=== PATIENT | male | born 1935 | race Caucasian/White ===

== ENCOUNTER 2016-06-09 05:48 | Inpatient (IN) | payer MEDICARE, BC ==
[~2016-06-09] VITALS: Ht 180.3 cm; Wt 83.8 kg
[2016-06-14] MEDS ORDERED: ASPIR 8181 MG PO (10:04)
[2016-06-14] MEDS ORDERED: LIPITOR DPS20 MG PO (10:05)
[2016-06-14] MEDS ORDERED: THORAZINE-DPS25 MG PO (10:06)
[2016-06-14] MEDS ORDERED: TYLENOL DPS325 MG PO (10:06)
[2016-06-14] MEDS ORDERED: BACITRACIN15 G1 TP (10:06)
--- NOTE | 2016-06-14 16:23 | CO ---
ADMIT: 06/09/2016 RM/LOC: 512 [facility] MR#: [id number] [address] [address] [address] [place] [address] Consultation SEX: M AGE: 80 : 1935 DATE OF CONSULTATION: 06/09/2016 ATTENDING PHYSICIAN: Lanre Goode MD CONSULTING PHYSICIAN: Eric Lin MD REASON FOR CONSULTATION: Probable mesothelioma. HISTORY OF PRESENT ILLNESS: The patient is a very pleasant, 80-year-old male, who presented in April 2016 with some dyspnea. He underwent a chest x-ray that showed a large right-sided pleural effusion and was referred to Pulmonology with Dr. Satcy. On 05/11/2016, he underwent a thoracentesis that was then followed by a CT scan of the chest. This thoracentesis was negative for malignant cells on flow cytometry and morphology. The CT scan of the chest shows no distinct lung nodules or significant mediastinal adenopathy, but was without contrast. There was a questionable right lower lung consolidation. He was then referred to Dr. Jensen Stacy, who performed a bronchoscopy and a repeat thoracentesis on 05/23/2016 that also was negative for any malignant cells. He was then referred to Dr. Goode for consideration of thoracoscopy which was performed today, and unfortunately shows a pleural-based mass in the posterior lateral sulcus of the diaphragm. Several of these nodules were excised for pathology. The patient also had a talc pleurodesis performed. The frozen section on the biopsy of the pleural nodule appears to be a mesothelioma. 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 He had only a very brief smoking history. He otherwise has been very healthy. He has had really no physical limitations. 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 He is recovering quite well from his procedure. I am asked to see him to discuss the possible scenarios for his treatment. PAST MEDICAL HISTORY: Hyperlipidemia and sleep apnea. ALLERGIES: ARE REVIEWED IN HIS CHART. MEDICATIONS: Are reviewed in his chart. SOCIAL HISTORY: The patient has a remote smoking history, quitting over 45 years ago. He lives near [place] with his . They have four daughters. His son in law is my partner Dr. Patrick Tatum. FAMILY HISTORY: He is not aware of any recurrent hereditary malignancies in the family. REVIEW OF SYSTEMS: See HPI. Otherwise, complete review of systems was ADMIT: 06/09/2016 RM/LOC: 512 [facility] MR#: [id number] [address] [address] [address] [place] [address] Consultation SEX: M AGE: 80 : 1935 obtained and is negative. PHYSICAL EXAMINATION: VITAL SIGNS: Temp was 97.8, pulse 62, respirations 16, blood pressure 124/67. GENERAL: The patient is in no acute distress, and he provides me a good history. He was alert and oriented. He is somewhat hard of hearing. The rest of our exam was deferred. LABORATORY DATA: None to review during this admission. 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 I talked with him and the family at length today with our face- to-face visit lasting approximately 45 minutes regarding his surgical findings and are concerned that this might represent mesothelioma. We will still need a few days to sort out the final pathology, but if this is indeed mesothelioma, then we need to make a decision as to whether he might be a candidate for an aggressive resection approach with possible pleurectomy. I doubt that he would be a candidate for a pneumonectomy with the pleurectomy, but we may pursue expert opinion possibly with Dr. Johanny Foreman in [place]. I will follow along during his hospital course, but will plan to see him back in my clinic after we know his final pathology and then we can make further decisions. He will ultimately need some additional imaging studies with a contrast CT scan of the chest, and possibly a PET scan. We will make these decisions after we know his pathology. I appreciate this consultation. Eric Lin MD/ jose JOB #: [id number] CC: Lanre Goode MD, Attending Physician Jensen Stacy MD, Family Physician
--- NOTE | 2016-06-16 09:09 | OR ---
ADMIT: 06/09/2016 RM/LOC: 512 [facility] MR#: [id number] [facility]#: [id number] [address] [address] [address] [place] [address] Operative/Delivery Room Report SEX: M AGE: 80 : 1935 SURGERY DATE: 06/09/2016 SURGEON: Lanre Goode MD PREOPERATIVE DIAGNOSIS: Persistent recurrent right-sided pleural effusion. POSTOPERATIVE DIAGNOSIS: Right-sided pleural effusion with evidence of small tumor in the posterolateral diaphragmatic sulcus. PROCEDURE PERFORMED: 1. Thoracoscopy with biopsy of this pleural mass in the posterolateral sulcus of the diaphragm as well as multiple random biopsies of the pleural surface. 2. Talc pleurodesis. RADIATION PHYSICIST: LACIE Villagran ANESTHESIA: General endotracheal. ESTIMATED BLOOD LOSS: Less than 10 mL. DESCRIPTION OF PROCEDURE: After appropriate informed consent was obtained, the patient was brought to the operating room. General endotracheal anesthesia was induced with double-lumen endotracheal tube. The patient was then positioned with his right side up. All of his extremities were appropriately padded, it was held in place with a beanbag. An axillary roll was placed underneath his left axilla. His right chest was prepped and draped in a sterile fashion. Anterior axillary line incision was made approximately 7th intercostal space. Thoracoport was placed and the camera was introduced. Immediately encountered some brownish-colored fluid throughout the chest and the pleural space. I suctioned this out and collected about 900 mL of pleural fluid. This was sent for cytology. I then added an additional 5 mm port anteriorly and another 12 mm Thoracoport posteriorly. Through these three ports, I was able to inspect the chest. There was just a generalized injected appearance to the pleural lining but no real obvious or immediately obvious mass or tumor. The pleural surface of the lung also appeared abnormal with some whitish plaque-like lesions but upon just general palpation with instruments, I did not feel any mass or tumor within the lung itself. All the fissures were pretty complete and so, I could see down within the fissures between the lobes of the lung and did not identify any obvious mass or tumor there. Really the area looked the most abnormal was on the posterolateral sulcus between the diaphragm and the chest wall, and then down along the inferior pulmonary ligament and overlying the esophagus, everything was pretty inflamed and thickened and edematous there. There was a little fibrinous debris that I was able to just suction out. Upon suctioning that debris off the diaphragm, identified a pretty small nodule that was only maybe an inch or two in length and just a whitish nodule down within the sulcus between the diaphragm and the chest wall. I took several biopsies of this area and it was a pretty hard firm mass. Portion of these biopsy was sent for frozen section. ADMIT: 06/09/2016 RM/LOC: 512 [facility] MR#: [id number] [address] [place] [id number] [address] [place], [place] [id number] Operative/Delivery Room Report SEX: M AGE: 80 : 1935 I continued to chip away this mass to the point where I was actually getting some fibers from the diaphragm and so, I did not go any deeper than that. With this accomplished, I then actually scrubbed out, went and talked to Pathology about the results, and the initial impression from the pathologist was that this looked like a mesothelioma. So given these findings, I did scrub back in. I took a few more biopsies and tried to debulk this area of tumor completely. Again, it was a very small area, just a couple inches in length and not very wide necessarily. So, I debulked as much as I could until I started getting some more muscle fibers pulled up with the diaphragm, so I stopped at that point. The chest was then copiously irrigated out with warm saline. Since we had what felt was enough tissue for diagnosis, I did not do too many other biopsies, just some random biopsies from other areas of the pleural surface. I did not take any lung biopsies. I then instilled some talc within the chest given this persistent recurrent pleural effusion and malignant diagnosis. And then placed a 36-[place] straight chest tube through one of my port sites up into the chest. The lung was then reinflated. Both port site wounds were closed with subcuticular sutures. Chest tube was sewn in place and placed Pleur-evac suction. Mat Hartmann assisted in this entire procedure. His help was necessary for retraction and camera driving. The patient was taken to recovery room in stable condition. Lanre Goode MD/ jose JOB #: [id number] CC: Lanre Goode, Attending Physician Jensne Stacy, Family Physician MD Eric Stone MD
--- NOTE | 2016-07-20 10:44 | DS ---
ADMIT: 06/09/2016 RM/LOC: 512 [facility] MR#: [id number] ACC#: [id number] [id number] [facility] [address] [place] [id number] [place] ERNSTFRANKIE Bishop [address] [place] [address] Discharge Summary SEX: M AGE: 80 : 1935 ADMISSION DATE: 06/09/2016 DISCHARGE DATE: 06/13/2016 ADMITTING DIAGNOSIS: Persistent recurrent right-sided pleural effusion. DISMISSAL DIAGNOSES: 1. Malignant mesothelioma. 2. Epithelial and sacromatous with atypical cells present. 3. Hyperlipidemia. 4. Sleep apnea. PROCEDURES: 1. Thoracoscopy with biopsy of pleural mass in the posterior lateral sulcus of the diaphragm, other multiple biopsies of the pleural surface. 2. Talc pleurodesis. HOSPITAL COURSE: The patient was an inpatient admit with routine med/surg orders and tele orders. A chest tube that was placed intraoperatively was put to -20 cm of suction. The patient was started on oral pain medications as well. Dr. Lin was consulted to assist with this diagnosis. Overall, the patient recovered well while in the hospital. He was on incentive spirometry. His pain was controlled, and he was tolerating an advanced diet. Vitals remained stable while in hospital course. The chest tube was weaned to water seal, then clamped, and was pulled prior to dismissal. He did have a run of hiccups that was treated with Thorazine. Chest x-ray showed good aeration of the right lung with no pneumothorax noted. The patient continued to recover well, and he was able to discharge to home on 06/13/2016. DISCHARGE INSTRUCTIONS: 1. Follow up with Dr. Goode in 1 week. 2. Dressings off in 1-2 days. 3. Follow up with Dr. Lin on June 16. DISCHARGE MEDICATION LIST: 1. Aspirin 81 mg daily. 2. Atorvastatin 20 mg at bedtime. 3. Bacitracin 30 g tube daily to blisters. 4. Thorazine 25 mg t.i.d. p.o. p.r.n. 5. Tylenol 650 mg q.4 p.r.n. 6. Tylenol suppository 650 mg q.4h p.r.n. LACIE Villagran / Lanre Goode MD / love JOB #: [id number] CC: Lanre Goode MD, Attending Physician Jensen Stacy MD, Family Physician
== END 2016-06-13 12:29 | disposition home or self-care (01) | DRG 167 ==
LOC: EDSEX → WOR 05:48 → 5MS 05:48
PROVIDERS: ADMIT Surgery
PROC: 0BBN4ZX Excision of Right Pleura, Percutaneous Endoscopic Approach, Diagnostic (ICD-10-PCS; principal; 2016-06-09)
PROC: 3E0L3GC Introduction of Other Therapeutic Substance into Pleural Cavity, Percutaneous Approach (ICD-10-PCS; principal; 2016-06-09)
DX: C45.0 Mesothelioma of pleura (principal); J91.0 Malignant pleural effusion; G47.30 Sleep apnea, unspecified; E78.00 Pure hypercholesterolemia, unspecified; Z79.82 Long term (current) use of aspirin; Z87.891 Personal history of nicotine dependence

== ENCOUNTER 2016-07-21 08:01 | Day surgery (SDC) | payer MEDICARE, BC ==
[~2016-07-21] VITALS: Ht 180.3 cm; Wt 81.0 kg
[~2016-07-21 08:01] MED LIST: ASPIR 8181 MG PO; BACITRACIN15 G1 TP; LIPITOR DPS20 MG PO; THORAZINE-DPS25 MG PO; TYLENOL DPS325 MG PO
--- NOTE | 2016-08-08 12:38 | OR ---
ADMIT: 07/21/2016 RM/LOC: [facility] MR#: [id number] [address] [address] [place] ERNSTFRANKIE Bishop [address] [place] [address] Operative/Delivery Room Report SEX: M AGE: 80 : 1935 SURGERY DATE: 07/21/2016 SURGEON: Lanre Goode MD PREOPERATIVE DIAGNOSIS: Mesothelioma, need for Icfznb-[id number] for chemotherapy. POSTOPERATIVE DIAGNOSIS: Mesothelioma, need for Kfsoko-O-Vbct for chemotherapy. PROCEDURE PERFORMED: Right internal jugular PowerPort placement with ultrasound and fluoroscopy. ANESTHESIA: Local MAC. ESTIMATED BLOOD LOSS: Less than 10 mL. DESCRIPTION OF PROCEDURE: After appropriate informed consent was obtained, the patient was brought to the operating room. IV sedation was provided. His neck and chest were prepped and draped in a sterile fashion. 1% lidocaine was injected in the skin and deep tissues directly over large right internal jugular vein. So, I identified with ultrasound. A small incision was made with 11 blade. An 18-gauge Cook needle on a syringe was used to access his right internal jugular vein under real-time ultrasound guidance. A picture was taken for the patient's permanent record. I had good return of dark red, nonpulsatile blood. Guidewire passed easily and confirmed to be in his superior vena cava with fluoro. Additional local was injected into skin and deep tissues of right upper chest wall. A subcutaneous pocket was created and the tubing was tunneled from the reservoir site up to the neck incision site. Split sheath dilator was then passed over the wire under fluoro guidance. The wire and dilator were removed. Tubing was then passed down through the split sheath and the split sheath was removed. The tubing was then pulled back ADMIT: 07/21/2016 RM/LOC: [facility] MR#: [id number] [address] [address] ERNST LERMAFRANKIE Bishop [address] [place] [address] Operative/Delivery Room Report SEX: M AGE: 80 : 1935 until tip resided in atriocaval junction. Tubing was cut at 25 cm, attached to PowerPort reservoir, and locked into place. The reservoir was then tacked down the chest wall fascia using 2-0 Ethibond sutures. The reservoir was accessed, aspirated, and flushed easily. It was then flushed with heparinized saline. The wound was then closed with 3-0 Vicryl in the dermal layer and running 4-0 Monocryl in the subcuticular layer. Sterile dressings were applied. The patient tolerated the procedure well and was taken to the recovery room in stable condition. Lanre Goode MD/ jose JOB #: [id number] CC: Lanre Goode, Attending Physician Eric Lin, Family Physician MD Jensen Sutherland MD
== END 2016-07-21 12:25 | disposition home or self-care (01) ==
LOC: SSS 08:01
PROC: 0JH60XZ Insertion of Tunneled Vascular Access Device into Chest Subcutaneous Tissue and Fascia, Open Approach (ICD-10-PCS; principal; 2016-07-21)
PROC: 05HM33Z Insertion of Infusion Device into Right Internal Jugular Vein, Percutaneous Approach (ICD-10-PCS; principal; 2016-07-21)
PROC: B513ZZA Fluoroscopy of Right Jugular Veins, Guidance (ICD-10-PCS; principal; 2016-07-21)
DX: C45.9 Mesothelioma, unspecified (principal); E78.00 Pure hypercholesterolemia, unspecified; G47.30 Sleep apnea, unspecified; Z98.890 Other specified postprocedural states